=== PATIENT | female | born 1955 | race Caucasian/White ===

== ENCOUNTER 2023-06-14 12:08 | Emergency (ER) | payer MEDICARE, OTHER, SELFPAY ==
[2023-06-14 12:19] VITALS: BP 110/75
[2023-06-14 15:06] LABS: % Basophils 0.2 % (0-2); % Eosinophils 4.4 % (0-6); % Immature Granulocytes 0.1 % (0-0.5); % Lymphocytes 21.3 % (20.5-51.1); % Monocytes 8.9 % (1.7-9.3); % Neutrophils 65.1 % (42.2-75.2); Absolute Eosinophils 0.4 10^3/uL (0-0.7); Absolute Lymphocytes 1.8 10^3/uL (1.2-3.4); Absolute Monocytes 0.8 10^3/uL (0.1-0.6); Absolute Neutrophils 5.6 10^3/uL (1.4-6.5); Hematocrit 44.5 % (37.0-47.0); Hemoglobin 14.9 g/dL (12.0-16.0); Mean Corp Hgb Conc. 33.5 g/dL (33.0-37.0); Mean Corpuscular Hgb 31.4 pg (27.0-31.0); Mean Corpuscular Volume 93.9 fL (81.0-99.0); Mean Platelet Volume 8.9 fL (7.4-10.4); Nucleated Red Blood Cells % 0 %; Platelet Count 423 10^3/uL (130-400); Red Blood Cell Count 4.74 10^6/uL (4.20-5.40); Red Cell Dist. Width 12.9 % (11.5-14.5); White Blood Cell Count 8.6 10^3/uL (4.8-10.8)
[2023-06-14 15:22] LABS: ALT (SGPT) 39 U/L (0-35); AST (SGOT) 34 U/L (14-36); Albumin 4.3 g/dl (3.5-5.0); Alkaline Phosphatase 84 U/L (38-126); Blood Urea Nitrogen 24 mg/dl (7-17); Calcium 9.8 mg/dl (8.4-10.2); Carbon Dioxide 27 mmol/L (22-30); Chloride 98 mmol/L (98-107); Glucose 84 mg/dl (70-99); Potassium 4.3 mmol/L (3.5-5.1); Sodium 130 mmol/L (135-145); Total Bilirubin 0.3 mg/dl (0.2-1.3); eGFR > 60.00
--- NOTE | 2023-06-14 16:19 | ED.GENMED ---
History of Present Illness
General
Chief Complaint: Skin Problem
Source: patient and spouse
Exam Limitations: none
Time Seen by Provider: 06/14/23 14:38
Travel History
Have you had any contact with someone who has COVID-19?: No
Do you have any symptoms of coronavirus? Fever > 100 degrees, chills, cough, shortness of breath, sore throat, loss of taste or smell, muscle aches, or headache?: No
History of Present Illness
History of Present Illness:
67-year-old female primarily here for a rash on her buttock. She has had this for weeks. Very tearful and upset over her multiple medical issues that are all chronic. She is worried about her chronic hepatitis C. She is worried about her crease
in her fingernails that she has had chronically. They stopped all her medications for her bipolar disease and depression. But again primarily here for the rash
Past History
Past History
ED Past Medical History: Psychiatric (Bipolar disease) and Other (Hepatitis C)
ED Past Surgical History: Orthopedic
Review of Systems
Review of Systems
All Other Systems: Not applicable
Constitutional: Denies fever
Respiratory: Reports no symptoms
Cardiac: Reports no symptoms
ABD/GI: Reports no symptoms
Phy Exam
Physical Exam
Physical Exam:
GENERAL: Alert and oriented in no apparent distress
EYE: Orbits normal.
NECK: Supple
CARDIAC: Regular rate and rhythm without any obvious murmurs.
LUNGS: Clear breath sounds,normal
ABDOMEN: Soft, without focal tenderness or distention
NEUROLOGICAL: Alert and oriented , grossly non-focal
SKIN: Warm and dry, 1 cm area of mild inflammation at her pilonidal area. No abscess. There is a linear crease at this location with a questionable tiny fistula at the inferior border. However no drainage or open wound. No abscess. Rectal area
is normal.
MUSCULOSKELETAL: No edema,no deformity.Good color
PSYCH: No distress but at times tearful and upset
Course
Orders/Labs/Results
Orders:
Orders
06/14/23 14:40
Complete Blood Count/With Diff Urgent
Comprehensive Metabolic Panel Urgent
Abnormal Lab Results
06/14/23
14:40
MCH 31.4 H pg
(27.0-31.0)
Plt Count 423 H 10^3/uL
(130-400)
Absolute Monos (auto) 0.8 H 10^3/uL
(0.1-0.6)
Sodium 130 L mmol/L
(135-145)
BUN 24 H mg/dl
(7-17)
ALT 39 H U/L
(0-35)
06/14/23 14:40
06/14/23 14:40
Vital Signs
Initial and Last Documented VS:
Initial Vital Signs
Temp Pulse Resp BP Pulse Ox
97.7 F 96 17 110/75 99
06/14/23 12:19 06/14/23 12:19 06/14/23 12:19 06/14/23 12:19 06/14/23 12:19
Last Documented Vital Signs
Temp Pulse Resp BP Pulse Ox
97.7 F 96 17 110/75 99
06/14/23 12:19 06/14/23 12:19 06/14/23 12:19 06/14/23 12:19 06/14/23 12:19
*Pulse Oximetry
Patient hypoxic: no
*Critical Care Note
Total Time (30-74mins, 75-104mins- exclusive of procedures): Not Applicable
Update Note
Update Note:
Patient medically stable and nontoxic. None of these issues that she complains of appear acute in nature. As for the rash we will try a trial of Bactroban. As for her sodium this has been an ongoing issue she drinks significant water. Mild
hyponatremia that this requires follow-up.
ED Attending Note
-
Portions of this chart may have been created with voice recognition software.� Occasional wrong word or��sound alike� substitutions may have occurred due to the inherent limitations of voice recognition software.
Discharge Plan
Departure
Patient Disposition: Home (Routine Discharge)
Date of Disposition: 06/14/23
Time of Disposition: 16:22
Patient with high blood pressure during this ER visit?: No
Discharge Problem:
Nonspecific rash, Mild hyponatremia
Instructions: Skin Rash (DC), Hyponatremia (DC)
Prescriptions:
New
mupirocin 2 % ointment
1 applic topical BID Qty: 22 0RF
Referrals:
PRIVATE,PHYSICIAN [Family Provider] -
Activity Restrictions/Additional Instructions:
Use the cream as directed
Follow-up closely with your primary physician this week
Limit your fluid intake
Repeat your sodium level within the next week
Interventions
Interventions:
*Risk Screen - Suicide Last Done: 06/14/23 15:57
*General Assessment Last Done: 06/14/23 15:57
*Neglect/Abuse Screening Last Done: 06/14/23 15:57
ED- Fall Risk Assessment Last Done: 06/14/23 15:13
*ED COVID-19 Vaccine History Last Done: 06/14/23 12:24
ED-Skin Assessment Last Done: 06/14/23 15:13
Discharge Date and Time
Print Language: [place]
== END 2023-06-14 16:33 | disposition home or self-care (01) ==
LOC: EMR 12:08
PROVIDERS: EMERGENCY PHYSICIAN Emergency Medicine
DX: R21 Rash and other nonspecific skin eruption (principal); E87.1 Hypo-osmolality and hyponatremia; F31.9 Bipolar disorder, unspecified; B18.2 Chronic viral hepatitis C
CPT/HCPCS: 99283; 80053; 85025

== ENCOUNTER 2024-01-18 09:16 | Emergency (ER) | payer MEDICARE, OTHER, SELFPAY ==
[2024-01-18 09:19] VITALS: BP 136/87
--- NOTE | 2024-01-18 09:52 | ED.GENMED ---
History of Present Illness
General
Chief Complaint: Skin Problem
Time Seen by Provider: 01/18/24 09:35
History of Present Illness
History of Present Illness:
68-year-old female with history of anxiety and depression presenting to the emergency department for diffuse rash. Patient arrives with who prompted her to come into the emergency department today. Patient notes irritating rash for the
past several months which has been worsening. She has not been treating it with anything. She has not been following with her doctor, notes history of anxiety and depression, not currently on medications. Reports that rash is itchy, denies any
known allergens, however believes that she may be allergic to her dog. Denies any new exposures or detergents. Denies any new medications. Denies chest pain or difficulty breathing. Denies abdominal pain or GI symptoms. Denies fever. She has
not been using any therapies for the rash. Denies additional acute medical complaints
Past History
Past History
ED Past Medical History: Psychiatric (Bipolar disease) and Other (Hepatitis C)
ED Past Surgical History: Orthopedic
Phy Exam
Physical Exam
Physical Exam:
General: Well-appearing, no clinical signs of dehydration, nontoxic and in no acute distress
HEENT: protecting airway
Neck: appears supple
CV: Normal heart rate, regular rhythm
Resp: No accessory muscle use, no increased work of breathing, lungs clear to auscultation bilaterally
Abd: no distension
Extremities: No deformities, no swelling, no erythema
Neuro: alert, no focal neurologic deficit
: deferred
Rectal: deferred
Psych: Depressed affect, tearful
Skin: Multiple areas of raised erythematous rash with white plaque, focused to the back of the neck, elbows, shins and knees. Diffuse excoriations and scabbing
Course
Vital Signs
Initial and Last Documented VS:
Initial Vital Signs
Temp Pulse Resp BP Pulse Ox
98.1 F 100 18 136/87 97
01/18/24 09:19 01/18/24 09:19 01/18/24 09:19 01/18/24 09:19 01/18/24 09:19
Last Documented Vital Signs
Temp Pulse Resp BP Pulse Ox
98.1 F 100 18 136/87 97
01/18/24 09:19 01/18/24 09:19 01/18/24 09:19 01/18/24 09:19 01/18/24 09:19
MDM/Problems Addressed
MDM/Problems Addressed:
68-year-old female with history of depression and anxiety presenting for evaluation of rash which has been present for months. Vital signs are normal.
On exam, patient is depressed, tearful, however not presently appear to be a threat to herself or others. Patient with diffuse rash, appears consistent with plaque psoriasis. Patient notes family history of plaque psoriasis in her mother and her
grandmother. Patient has left the rash untreated for months, is noncompliant with doctor follow-up. She is not currently on any medication for her depression or anxiety, which is likely worsening the psoriasis. Extensive conversation had with
patient, educated about psoriasis, treatment options, and treatment plan. Explained in detail to patient and at bedside that patient needs to routinely see her primary care doctor, as well as likely a therapist for management of her mental
health. Also explained that she needs to see a carbon blocks press operator for biopsy, and topical versus oral management of her likely underlying diagnosis of psoriasis. Advised using sensitive skin detergents. Will start on a steroid taper for temporary
relief, as well as a steroid cream. Return precautions discussed and patient verbalized understanding
*Critical Care Note
Total Time (30-74mins, 75-104mins- exclusive of procedures): Not Applicable
ED Attending Note
-
Portions of this chart may have been created with voice recognition software.� Occasional wrong word or��sound alike� substitutions may have occurred due to the inherent limitations of voice recognition software.
Discharge Plan
Departure
Prescriptions:
No Action
mupirocin 2 % ointment
1 applic topical BID Qty: 22 0RF
Interventions
Interventions:
*Risk Screen - Suicide Last Done: 01/18/24 09:51
*General Assessment Last Done: 01/18/24 09:50
*Neglect/Abuse Screening Last Done: 01/18/24 09:43
ED- Fall Risk Assessment Last Done: 01/18/24 09:51
*ED COVID-19 Vaccine History Last Done: 01/18/24 09:50
Discharge Date and Time
Print Language: [id number]
== END 2024-01-18 10:30 | disposition home or self-care (01) ==
LOC: EMR 09:16
PROVIDERS: EMERGENCY PHYSICIAN Student in an Organized Health Care Education/Training Program
DX: R21 Rash and other nonspecific skin eruption (principal); F32.A Depression, unspecified; Z91.199 Patient's noncompliance with other medical treatment and regimen due to unspecified reason; Z86.19 Personal history of other infectious and parasitic diseases
CPT/HCPCS: 99282